=== PATIENT | female | born 1935 | race Hispanic/Latino ===

== ENCOUNTER 2018-05-22 09:47 | Outpatient (CLI) | payer MEDICARE, OTHER | END 2018-05-22 09:48 | disposition home or self-care (01) | LOC: RAD 09:47 ==

== ENCOUNTER 2018-05-27 11:18 | Outpatient (CLI) | payer MEDICARE, OTHER | END 2018-05-27 11:19 | disposition home or self-care (01) | LOC: RAD 11:18 ==